=== PATIENT | female | born 1950 | race Caucasian/White ===

== ENCOUNTER → 2021-08-10 10:20 | Outpatient (CLI) | payer MEDICARE, OTHER, SELFPAY ==
--- NOTE | 2021-08-10 10:44 | XR_ITS ---
PROCEDURE: XR CHEST PORTABLE CLINICAL HISTORY: COVID OUTPATIENT COMPARISON: No exams were available for comparison FINDINGS: The cardiomediastinal silhouette and pulmonary vascularity are within normal limits. The lungs are clear without infiltrates, suspicious nodules, or pleural effusions. No acute bony abnormalities. IMPRESSION: No acute findings. Dictated by: Octaviano Robles MD 08/10/2021 11:03 Octaviano Robles MD in [place] 08/10/2021 11:03
== END ==
PROVIDERS: PCP Family Medicine; Visit Provider Nurse Practitioner
DX: Z20.822 Contact with and (suspected) exposure to COVID-19 (principal); U07.1 COVID-19
CPT/HCPCS: 71045; C9803; U0003; U0005

== ENCOUNTER 2022-06-02 10:27 | Emergency (ER) | payer OTHER, SELFPAY ==
[2022-06-02 10:45] VITALS: BP 167/73; PULSE 83; RESP 19; TEMP 36.8; O2SAT 98; BMI 27.9
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
[2022-06-02 13:15] VITALS: BP 167/73; PULSE 83; RESP 19; TEMP 36.8; O2SAT 98
== END 2022-06-02 13:20 | disposition home or self-care (01) ==
PROVIDERS: Emergency Provider Nurse Practitioner; PCP Nurse Practitioner
DX: M54.2 Cervicalgia (principal); M25.532 Pain in left wrist; M25.512 Pain in left shoulder; T14.8XXA Other injury of unspecified body region, initial encounter; V44.5XXA Car driver injured in collision with heavy transport vehicle or bus in traffic accident, initial encounter
CPT/HCPCS: 72040; 73110; 99213; G0463

== ENCOUNTER 2023-10-09 09:14 | Emergency (ER) | payer MEDICARE, OTHER, SELFPAY ==
[2023-10-09 09:15] VITALS: BP 134/96; PULSE 84; RESP 22; TEMP 36.7; O2SAT 98; BMI 30.9
--- NOTE | 2023-10-09 09:21 | PC.NURSE ---
pt to restroom without complications
[2023-10-09 09:32] VITALS: BMI 30.9
--- NOTE | 2023-10-09 09:32 | CT_ITS ---
FINAL REPORT TECHNIQUE: After the administration of oral and intravenous contrast, axial images were obtained through the abdomen and pelvis by computed tomography. The study was performed with techniques to keep radiation dose as low as reasonably achievable, (ALARA). Individual dose reduction techniques using automated exposure control or adjustment of mA and/or kV according to the patient's size were employed. CLINICAL HISTORY: R flank pain and dysuria COMPARISON: None FINDINGS: Abdomen: The lung bases are clear. The liver parenchyma is homogeneous. The gallbladder is present. The spleen, pancreas, and adrenals appear unremarkable. The aorta is normal in caliber. There is no free fluid or adenopathy. There is moderate right hydronephrosis and hydroureter which extends to the level of an obstructing stone at the ureterovesicular junction, with a stone measuring 7 mm in diameter. The left kidney is unremarkable in appearance. Pelvis: The appendix is not identified. The urinary bladder is unremarkable. There is no free fluid or adenopathy. IMPRESSION: Moderate right hydronephrosis and hydroureter, which extends to the level of an obstructing stone at the UVJ measuring 7 mm in diameter. Reviewed, Interpreted and Dictated by Shan Schwarz MD Transcribed by Amena Wills Authenticated and [facility]
--- NOTE | 2023-10-09 09:34 | HMH.EDGENADL ---
Discharge Plan Disposition Patient Disposition: Home, Self-Care Condition: Fair Prescriptions Prescriptions: New tamsulosin 0.4 mg capsule 0.4 mg PO DAILY Qty: 10 0RF ondansetron 4 mg tablet,disintegrating 4 mg PO Q8H 5 Days Qty: 15 0RF hydrocodone-acetaminophen 5-325 mg tablet 1 tab PO Q8H PRN (Reason: pain (scale score 7-10)) Qty: 9 0RF No Action meloxicam 15 mg tablet See Rx Instructions .ROUTE .COMPLEX Qty: 30 1RF Dose Instruction: TAKE 1 TABLET BY MOUTH EVERY DAY FOR 30 DAYS Rx Instructions: TAKE 1 TABLET BY MOUTH EVERY DAY FOR 30 DAYS cetirizine-pseudoephedrine 1 EACH tablet extended release 12 hr 1 each PO DAILY methocarbamol 500 MG tablet 500 mg PO BID PRN (Reason: Muscle Spasm) Qty: 10 0RF Referrals Follow up/Referrals: Arnulfo Mc MD [Primary Care Provider] - See instructions Howard Paula MD [Staff Physician] - See instructions Activity Restrictions/Add. Instructions Additional Instructions/Restrictions: You were evaluated in the emergency department today for right flank pain. You have a kidney stone that looks like it is very close to passing if it has not already passed. Strain your urine and drink plenty of fluids. Take the prescribed tamsulosin as directed to relax your urinary tract and help the stone pass. Take the prescribed Zofran if needed for nausea and vomiting. Take the prescribed hydrocodone acetaminophen if you have severe pain not controlled by ibuprofen. You have been referred to urology for outpatient follow-up. Make an appointment with your primary care physician for reevaluation as soon as possible. Return to the emergency department with any new or worsening symptoms. Clinical Impressions Clinical Impression: Ureterolithiasis Hydronephrosis Qualifiers: Hydronephrosis type: unspecified Qualified Code(s): N13.30 - Unspecified hydronephrosis Instructions Patient Instructions: DI for Kidney Stones, DI for Hydronephrosis-Adult Discharge ED Provider: Kera Sánchez Adult HPI General Chief complaint: PAIN Stated complaint: back pain, nausea, pain while urinating Time Seen by Provider: 10/09/23 09:17 History of Present Illness HPI narrative: This 73-year-old female presents to the emergency department with concerns of right flank pain and painful urination. Patient states she has a history of kidney stones. She believes she has had a UTI for the last 2 to 3 days with painful urination. She has been taking Azo without relief. This morning she had acute onset of right flank pain. She states it feels like kidney stone. She is having nausea and vomiting. She says the pain radiates from her right flank around into her right groin. Patient takes Zyrtec daily but no other daily medications. Related Data Home Medications Medication Instructions Recorded Confirmed cetirizine 5 mg-pseudoephedrine ER 1 each PO DAILY Allergy symptoms 06/02/22 06/02/22 120 mg tablet,extended release,12hr Previous Rx's Medication Instructions Recorded methocarbamol 500 mg tablet 500 mg PO BID PRN Muscle Spasm #10 06/02/22 tabs meloxicam 15 mg tablet See Rx Instructions .Route 02/26/23 .COMPLEX #30 tabs hydrocodone 5 mg-acetaminophen 325 1 tab PO Q8H PRN pain (scale score 10/09/23 mg tablet 7-10) #9 tabs ondansetron 4 mg disintegrating 4 mg PO Q8H 5 days #15 tabs 10/09/23 tablet tamsulosin 0.4 mg capsule 0.4 mg PO DAILY #10 caps 10/09/23 Allergies Allergy/AdvReac Type Severity Reaction Status Date / Time codeine AdvReac Intermediate Abdominal Verified 10/09/23 10:48 Pain PFSH PFSH Disclaimer: The information contained in this section may have been updated after the patient was seen, as this information can be updated by other users. Social History Smoking Status: Never smoker alcohol intake: never substance use type: denies use current occupational status: other Travel in the last 8 weeks: None household members: family housing: house ROS Obtained: Yes All systems reviewed & no additional complaints except as documented Constitutional Constitutional: Denies chills, Denies fever(s), Denies headache(s) and Denies weakness Eyes Eyes: Denies change in vision ENT Ears, Nose, Mouth, and Throat: Denies dizziness, Denies headache(s), Denies nasal congestion and Denies sore throat Cardiovascular Cardiovascular: Denies chest pain, Denies dyspnea and Denies leg edema Respiratory Respiratory: Denies cough and Denies dyspnea Gastrointestinal Gastrointestingal: Reports abdominal pain, nausea and vomiting; Denies constipation or diarrhea Genitourinary Female Genitourinary: Reports dysuria and Reports flank pain Musculoskeletal Musculoskeletal: Denies arthralgias, Denies myalgias, Denies numbness and Denies tingling Integumentary/Breasts Skin/Breast: Denies change in pigmentation Neurologic Neurologic: Denies dizziness, Denies headache(s), Denies numbness, Denies tingling and Denies weakness Physical Exam General General appearance: alert Comment: In distress secondary to pain, nontoxic appearing Head Head exam: atraumatic and normocephalic Eye Eye exam: Present PERRL and EOMI ENT ENT exam: Present mucous membranes moist Neck Neck exam: Present normal inspection and full ROM Chest Chest inspection: Present symmetric chest wall rise Respiratory Respiratory exam: Present normal lung sounds bilaterally; Absent respiratory distress or stridor Cardiovascular Cardiovascular exam: Present regular rate and normal rhythm Abdominal Exam Abdominal exam: Present soft and tenderness (Right flank, suprapubic, positive right CVA tenderness); Absent distention, guarding or rebound Extremities Exam Extremities exam: Present full ROM Back Exam Back exam: Present CVA tenderness (R); Absent CVA tenderness (L) Neurological Exam Neurological exam: Present alert and oriented X3; Absent motor sensory deficit Psychiatric Psychiatric exam: Present normal affect and normal mood Skin Skin exam: Present warm and dry Medical Decision Making Ayaan Inquiry Pt receiving controlled substance: No Vital Signs: 10/09/23 09:15 10/09/23 10:33 10/09/23 11:00 Temperature 98.0 F 97.6 F Temperature Source Oral Oral Pulse Rate 82 96 H Pulse Rate [Right] 84 Respiratory Rate 22 20 Blood Pressure 178/90 H 168/80 H Blood Pressure [Right Arm] 134/96 H Blood Pressure Mean 119 109 Blood Pressure Mean [Right Arm] 108 Blood Pressure Source [Right Arm] Automatic Cuff 02 Sat by Pulse Oximetry 98 97 96 Oxygen Delivery Method Room Air Room Air 10/09/23 11:30 10/09/23 12:17 Temperature 97.8 F Temperature Source Pulse Rate 78 80 Pulse Rate [Right] Respiratory Rate 20 18 Blood Pressure 174/87 H 160/92 H Blood Pressure [Right Arm] Blood Pressure Mean 116 Blood Pressure Mean [Right Arm] Blood Pressure Source [Right Arm] 02 Sat by Pulse Oximetry 97 Oxygen Delivery Method Room Air Lab Data Lab Results 10/09/23 08:50: Urine Color [place], Urine Appearance Sl cloudy, Urine pH 5.0, Ur Specific [place] 1.025, Urine Protein 3+, Urine Glucose (UA) Trace, Urine Ketones Trace, Urine Blood 2+, Urine Nitrate Positive, Urine Bilirubin Negative, Urine Urobilinogen >=8.0, Ur Leukocyte Esterase Trace, Urine RBC 5-10, Urine WBC Occasional, Ur Squamous Epith Cells 5-10, Urine Bacteria Trace 10/09/23 09:30: WBC 5.8, RBC 3.71 L, Hgb 13.9, Hct 35.4 L, MCV 95.2, MCH 37.4 H, MCHC 39.3 H, RDW 15.6, Plt Count 287, MPV 9.3, Neut % (Auto) 50.8, Lymph % (Auto) 40.4, [place] % (Auto) 5.9, Eos % (Auto) 2.1, Baso % (Auto) 0.7, Neut # (Auto) 3.0, Lymph # (Auto) 2.4, [place] # (Auto) 0.3, Eos # (Auto) 0.1, Baso # (Auto) 0.0, Sodium 140, Potassium 4.1, Chloride 107, Carbon Dioxide 27, Anion Gap 10.1, BUN 19 H, Creatinine 0.90, Estimated Creat Clear 65, Estimated GFR 61, Est GFR ( Amer) 74, Glucose 104 H, Calcium 9.4, Total Bilirubin 0.6, AST 37 H, ALT 28, Alkaline Phosphatase 65, Total Protein 7.7, Albumin 4.7, Globulin 3.0, Albumin/Globulin Ratio 1.6 10/09/23 09:30 10/09/23 09:30 Orders (Tests/Meds): ED MEDICATIONS Discontinued Medications Generic Name Dose Route Start Last Admin Trade Name Freq PRN Reason Stop Dose Admin Lactated Ringer's 500 mls @ 999 mls/hr 10/09/23 09:32 10/09/23 09:43 Lactated Ringer's 1000 Ml Bag IV 10/09/23 10:02 999 mls/hr .Q31M ONE Administration Iopamidol 75 ml 10/09/23 10:15 10/09/23 10:16 Iopamidol-370 (76%);100ml Bottle IV 10/09/23 10:16 75 ml ONCE ONE Administration Ketorolac Tromethamine 15 mg 10/09/23 09:44 10/09/23 09:52 Ketorolac 30mg/Ml Vial IV 10/09/23 09:45 15 mg ONCE ONE Administration Morphine Sulfate 4 mg 10/09/23 09:32 10/09/23 09:43 Morphine 4mg/Ml Syringe IV 10/09/23 09:33 4 mg ONCE ONE Administration Ondansetron HCl 4 mg 10/09/23 09:32 10/09/23 09:43 Ondansetron 4mg/2ml Vial IV 10/09/23 09:33 4 mg ONCE ONE Administration Sodium Chloride 10 ml 10/09/23 10:15 10/09/23 10:15 Sodium Chloride 0.9% 10ml Syr (Rad Only) IV 10/09/23 10:16 10 ml ONCE ONE Administration ORDERS Category Date Time Status CT abdomen pelvis w con Stat Cat Scan 10/09/23 09:32 Completed CBC w/Auto Diff [Complete Blood Count Auto Diff] Stat Lab 10/09/23 09:30 Completed CMP [Comprehensive Metabolic Panel] Stat Lab 10/09/23 09:30 Completed UA [Urinalysis and Microscopic] Stat Lab 10/09/23 08:50 Completed Medical Decision Narrative: In summary, this 73year old female presents to the emergency department today with right-sided flank pain, dysuria. On initial evaluation patient is hemodynamically stable but obviously in acute distress secondary to pain, she is also having nausea and vomiting, physical exam notable for right CVA tenderness as well as right flank tenderness radiating to the suprapubic area. Differential diagnosis includes but is not limited to urinary tract infection, pyelonephritis, nephrolithiasis, ureterolithiasis, hydronephrosis, perinephric abscess, appendicitis. Based on these concerns, I ordered appropriate labs including urine studies, CT imaging, and symptomatic control with IV medications. Patient received IV Zofran, IV morphine, IV fluids for treatment. Labs personally reviewed demonstrate CBC without leukocytosis or anemia, CMP with mild prerenal changes, patient is already receiving IV fluids. No significant electrolyte abnormalities, UA negative for signs of infection. CT imaging personally interpreted demonstrates ureterolithiasis with stone at the UVJ causing hydronephrosis. See radiology read for final interpretation. On reassessment patient feels improved and states her symptoms are significantly better. She feels comfortable being discharged. I have given her referral to urology as well as prescription for tamsulosin, Zofran, and short course of hydrocodone for severe pain. She is comfortable with this plan and appropriate for discharge. She was also provided a urine strainer. Patient was given instructions on symptomatic management, follow up instructions, and return precautions for the emergency department. Patient indicated understanding and was discharged in stable condition. Critical Care Critical Care Time Critical Care Time: No
[2023-10-09 09:35] LABS: Microscopic, Urine URINE MICROSCOPIC (MICROSCOPIC)
[2023-10-09 09:39] LABS: Appearance,Urine SL CLOUDY (Clear); Bilirubin,Urine Negative (Negative); Blood, Urine 2+ (Negative); Color,Urine ORANGE (Yellow); Glucose,Urine (UA) TRACE (Negative); Ketones,Urine TRACE (Negative); Leukocyte Esterase,Urine TRACE (Negative); Nitrate,Urine POSITIVE (Negative); Protein,Urine 3+ (Negative); Specific Gravity, Urine 1.025 (1.005-1.030); Urobilinogen,Urine >=8.0 EU/dl (0.2)
[2023-10-09] MEDS: MORPHINE 4MG/ML SYRINGE 4 MG IV (09:43)
[2023-10-09] MEDS: LACTATED RINGERS 1000ML 500 ML 999 ML IV (09:43)
[2023-10-09] MEDS: ONDANSETRON 4MG/2ML VIAL 4 MG IV (09:43)
[2023-10-09 09:44] LABS: Basophils % 0.7 % (0.1-2.0); Eosinophils # 0.1 K/mm3 (0.0-0.4); Eosinophils % 2.1 % (0.1-12.0); Hematocrit 35.4 % (37.0-47.0); Hemoglobin 13.9 g/dL (12.2-16.2); Lymphocytes # 2.4 K/mm3 (0.7-4.5); Lymphocytes % 40.4 % (10-50); Mean Corpuscular HGB Conc 39.3 g/dL (31.8-35.4); Mean Corpuscular Hemoglobin 37.4 pg (27.0-31.2); Mean Corpuscular Volume 95.2 fl (81-99); Mean Platelet Volume 9.3 fl (7.4-10.4); Monocytes # 0.3 K/mm3 (0.1-1.0); Monocytes % 5.9 % (1.7-9.3); Neutrophils % 50.8 % (37.0-80.0); Platelet Count 287 K/mm3 (142-424); Red Blood Count 3.71 M/mm3 (4.20-5.40); Red Cell Distribution Width 15.6 % (11.5-17.5); White Blood Count 5.8 K/mm3 (4.8-10.8)
[2023-10-09 09:45] LABS: Chloride 107 mmol/L (98-107); Potassium 4.1 mmoL/L (3.5-5.1); Sodium 140 mmol/L (136-145)
[2023-10-09 09:48] LABS: Alanine Aminotransferase 28 U/L (12-78); Albumin Level 4.7 g/dl (3.5-5.0); Albumin/Globulin Ratio 1.6 (1.1-1.8); Alkaline Phosphatase 65 U/L (38-126); Anion Gap 10.1 mEq/L (5-15); Aspartate Amino Transferase 37 U/L (14-36); Bilirubin,Total 0.6 mg/dl (0.2-1.3); Blood Urea Nitrogen 19 mg/dl (7-17); Calcium 9.4 mg/dl (8.4-10.2); Carbon Dioxide 27 mmol/L (22.0-30.0); Creatinine Clearance Estimated 65 mL/min (50-200); Estimated Glomerular Filt Rate 61 ml/min (>60); GFR (African American) 74 ML/MIN (>60); Glucose 104 mg/dl (74-100); Total Protein,Serum 7.7 g/dl (6.3-8.2)
[2023-10-09] MEDS: KETOROLAC 30MG/ML VIAL 15 MG IV (09:52)
--- NOTE | 2023-10-09 09:57 | PC.NURSE ---
pt to CT scan
[2023-10-09 10:09] LABS: Bacteria,Urine Trace /lpf; WBC,Urine Occasional #/hpf (0-3)
[2023-10-09] MEDS: SODIUM CHLORIDE 0.9% 10ML SYR (RAD ONLY) 10 ML IV (10:15)
[2023-10-09] MEDS: IOPAMIDOL-370 (76%);100ML BOTTLE 75 ML IV (10:16)
[2023-10-09 10:33] VITALS: BP 178/90; PULSE 82; TEMP 36.4; O2SAT 97
--- NOTE | 2023-10-09 10:51 | PC.NURSE ---
rounded on pt, she is much more comfortable. Tolerating ice chips. Updated that we are awaiting CT scan results.
[2023-10-09 11:00] VITALS: BP 168/80; PULSE 96; RESP 20; O2SAT 96
[2023-10-09 11:30] VITALS: BP 174/87; PULSE 78; RESP 20; O2SAT 97
[2023-10-09 12:17] VITALS: BP 160/92; PULSE 80; RESP 18; TEMP 36.6; O2SAT 98
== END 2023-10-09 12:20 | disposition home or self-care (01) ==
PROVIDERS: Emergency Provider Emergency Medicine; PCP Family Medicine
DX: N13.2 Hydronephrosis with renal and ureteral calculous obstruction (principal); R10.2 Pelvic and perineal pain; R11.2 Nausea with vomiting, unspecified
CPT/HCPCS: 74177; 80053; 81001; 85025; 96361; 96374; 96375; 99285; J2405; Q9967

== ENCOUNTER 2024-01-10 07:44 | Outpatient (CLI) | payer MEDICARE, OTHER, SELFPAY ==
[2024-01-10 08:24] LABS: Basophils % 0.3 % (0.1-2.0); Eosinophils # 0.1 K/mm3 (0.0-0.4); Eosinophils % 2.2 % (0.1-12.0); Hematocrit 35.7 % (37.0-47.0); Hemoglobin 13.3 g/dL (12.2-16.2); Lymphocytes # 1.7 K/mm3 (0.7-4.5); Mean Corpuscular HGB Conc 37.4 g/dL (31.8-35.4); Mean Corpuscular Hemoglobin 35.4 pg (27.0-31.2); Mean Corpuscular Volume 94.7 fl (81-99); Mean Platelet Volume 9.1 fl (7.4-10.4); Monocytes # 0.4 K/mm3 (0.1-1.0); Monocytes % 7.6 % (1.7-9.3); Neutrophils # 3.1 K/mm3 (1.8-7.8); Neutrophils % 57.8 % (37.0-80.0); Platelet Count 249 K/mm3 (142-424); Red Blood Count 3.77 M/mm3 (4.20-5.40); Red Cell Distribution Width 15.3 % (11.5-17.5); White Blood Count 5.4 K/mm3 (4.8-10.8)
[2024-01-10 09:05] LABS: Chloride 111 mmol/L (98-107)
[2024-01-10 09:06] LABS: Potassium 4.7 mmoL/L (3.5-5.1); Sodium 138 mmol/L (136-145)
[2024-01-10 09:07] LABS: Chloride 110 mmol/L (98-107); Potassium 4.6 mmoL/L (3.5-5.1); Sodium 140 mmol/L (136-145)
[2024-01-10 09:08] LABS: Alanine Aminotransferase 32 U/L (12-78); Alkaline Phosphatase 63 U/L (38-126); Anion Gap 4.7 mEq/L (5-15); Aspartate Amino Transferase 37 U/L (14-36); Bilirubin,Direct 0.4 mg/dl (0.0-0.4); Bilirubin,Indirect 0.3 mg/dL (0.0-0.9); Bilirubin,Total 0.7 mg/dl (0.2-1.3); Bilirubin,Unconjugated 0.3 mg/dL (0.0-1.1); Blood Urea Nitrogen 21 mg/dl (7-17); Carbon Dioxide 27 mmol/L (22.0-30.0); Estimated Glomerular Filt Rate 70 ml/min (>60); GFR (African American) 85 ML/MIN (>60)
[2024-01-10 09:09] LABS: Calcium 9.2 mg/dl (8.4-10.2); Chol/HDL Ratio 3.8 (1-3.5); Cholesterol 311 mg/dl (140-200); Glucose 97 mg/dl (74-100); HDL Cholesterol 81 mg/dl (40-60); Magnesium 2.2 mg/dl (1.6-2.3); Total Protein,Serum 6.8 g/dl (6.3-8.2); Triglycerides 63 mg/dl (30-150); VLDL Cholesterol 13 mg/dL (0-40)
[2024-01-10 09:09] LABS: Alanine Aminotransferase 32 U/L (12-78); Aspartate Amino Transferase 37 U/L (14-36); Blood Urea Nitrogen 21 mg/dl (7-17); Estimated Glomerular Filt Rate 82 ml/min (>60); GFR (African American) 99 ML/MIN (>60)
[2024-01-10 09:10] LABS: Albumin Level 4.1 g/dl (3.5-5.0); Albumin/Globulin Ratio 1.5 (1.1-1.8); Alkaline Phosphatase 63 U/L (38-126); Anion Gap 8.6 mEq/L (5-15); Bilirubin,Total 0.6 mg/dl (0.2-1.3); Calcium 9.1 mg/dl (8.4-10.2); Carbon Dioxide 26 mmol/L (22.0-30.0); Globulin 2.7 g/dL (1.3-3.2); Glucose 97 mg/dl (74-100); Total Protein,Serum 6.8 g/dl (6.3-8.2)
[2024-01-10 09:18] LABS: NT Pro Brain Natriuretic Pep. 42.6 pg/mL (0-125)
[2024-01-10 09:26] LABS: Direct LDL Cholesterol 149.95 mg/dL (100-129); Free T4 (Free Thyroxine) 0.86 ng/dl (0.78-2.19)
[2024-01-10 09:40] LABS: Thyroid Stimulating Hormone 1.97 uIU/mL (0.465-4.68)
== END 2024-01-10 23:59 ==
PROVIDERS: Physician Assistant; PCP Family Medicine; Visit Provider Physician Assistant
DX: R06.00 Dyspnea, unspecified (principal); R07.9 Chest pain, unspecified; Z82.49 Family history of ischemic heart disease and other diseases of the circulatory system
CPT/HCPCS: 36415; 80048; 80053; 80061; 80076; 83735; 83880; 84439; 84443; 85025

== ENCOUNTER 2024-01-29 06:30 | Outpatient (CLI) | payer MEDICARE, OTHER, SELFPAY ==
--- NOTE | 2024-01-29 06:34 | CT_ITS ---
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 A noncontrast coronary calcium scan was performed. A CT attenuation threshold of 130 Hounsfield units (HU) was used for the detection of calcium in contiguous voxels of 1 sq mm in area to be counted as individual lesions. Bolus tracking in the ascending aorta with a threshold of 180 HU was performed. Immediately afterwards, ECG synchronized cardiac CT was then performed from the cardiac base to apex using retrospective gating with ECG tube current modulation. A total of 85 mL of Isovue 370 mg/mL contrast medium was administered at 5 mL/sec followed by a saline flush using a biphasic injection protocol. A tube voltage of 120 KVp was used. The patient received the following medications prior to the cardiac CT. 0.8 mg of sublingual nitroglycerin The average heart rate at the time of acquisition was 57 bpm and regular. Image Reconstruction Transaxial images were reconstructed at 0.67 mm slide thickness. Data was reviewed interactively on an advanced workstation capable of 2 and 3-dimensional displays in all conventional reconstruction formats, including multiplanar reformations, maximum intensity projections, curved multiplanar reformations, and volume rendered reconstructions. When applicable, selected routine images describing the relevant coronary anatomy and pathology were saved and sent to PACS. Complications None Technical Quality Overall image quality was good. Coronary artery opacification was adequate. Total DLP (Dose-Length Product) is 1207.0 mGy-cm. The reported value represents the total of one or more individual components during the CT acquisition of this date and at this time, and as such, the same value may appear in more than one CT report depending on the interpreting/reporting physicians. COMPARISON None FINDINGS CT Coronary Calcium Scoring LMA (Left Main Artery) = 44 LAD (Left Anterior Descending) = 9 LCX (Left Coronary Circumflex) = 0 RCA (Right Coronary Artery) = 0 Total Calcium Score = 53 using the AJ-130 method. The observed calcium score of 53 is at 56th percentile for subjects of the same age, sex, and race/ethnicity. The interpretation of the calcium heart score is based on the following continuum*: 0 = no calcified plaque detected (risk of coronary artery disease is very low ??? less than 5%) 1-10 = calcium detected in extremely minimal levels (risk of coronary diseases is still low ??? less than 10%) 11-100 = mild levels of plaque detected with certainty (mild or minimal narrowing of heart arteries is likely) 101-400 = definite,at least moderate levels of plaque detected (relatively high risk of a heart attack within 3-5 years) >401-999 = extensive levels of plaque detected (high risk of heart attack, high levels of vascular disease are present, high likelihood of at least one significant coronary narrowing) *The calcium heart score quantifies the burden of coronary calcification/plaque in the coronary arteries. The calcium heart score is not able to evaluate the presence or burden of non-calcified (i.e. soft) plaque. There is no identifiable calcification in the aortic valve, mitral annulus or mitral valve, pericardium, or myocardium. Coronary CT Angiography The coronary arterial system is right dominant. Quantitative Stenosis Grading: Left Main (LM): The left main originates normally from the left sinus of Valsalva. The LM bifurcates into the left anterior descending artery and left circumflex artery. There is focal calcification in the distasl LM, but without evidence of luminal stenosis. Left Anterior Descending (LAD) and Diagonal Branches: The LAD gives off 2 diagonal branches. There is focal calcification in the proximal LAD, but without evidence of luminal stenosis. There is no evidence of LAD-myocardial bridge. Left Circumflex (LCX) and Obtuse Marginals (OM): The LCX gives off 1 Obtuse Marginal (OM) branch(es). The LCX and its branches are patent with no evidence of atherosclerosis. Right Coronary Artery (RCA): The RCA originates normally from the right sinus of Valsalva. The RCA gives off a posterior descending artery (PDA) and posterolateral (PL) branches. The RCA and its branches are patent with no evidence of atherosclerosis. Non-Coronary Cardiac Findings: Analysis of the left ventricular (LV) structure and function was performed after 3-D reconstruction of the LV from axial images, with user-corrected automatic contouring for assessment of LV volumes and user-defined reconstruction from oblique planes for measurement of 3-D cardiac structure and function. -The left ventricle systolic function is normal. -There is no left atrial appendage filling defect. Two right pulmonary veins and two left pulmonary veins drain normally into the left atrium. -No pericardial thickening or calcification. -Central and branch pulmonary arteries in the [id number] are unremarkable. -Thoracic aorta within the visualized thoracic aortic-branches in the [id number] is unremarkable. Extracardiac Structures No significant extra-cardiac findings. Note, however, that this study is focused on the cardiac findings. IMPRESSION -Presence of coronary calcification with an Agatston score = 53 using the AJ-130 method. -The observed calcium score of 53 is at 56th percentile for subjects of the same age, sex, and race/ethnicity. -No evidence of significant flow-limiting atherosclerosis of the coronary arteries. -CAD-RADS 1. Management recommendations per ACC/AHA guidelines*, as clinically appropriate. *Recommendations: CAD RADS 0: Reassurance. Consider non-atherosclerotic causes of chest pain. CAD RADS 1: Consider non-atherosclerotic causes of chest pain. Consider preventive therapy and risk factor modification. CAD RADS 2: Consider non-atherosclerotic causes of chest pain. Consider preventive therapy and risk factor modification, particularly for patients with nonobstructive plaque in multiple segments. CAD RADS 3: Consider further functional testing. Consider symptom-guided anti-ischemic and preventive pharmacotherapy as well as risk factor modification per published guideline statements. CAD RADS 4A: Consider further functional testing or invasive coronary angiography with revascularization per published guideline statements. Consider symptom-guided anti-ischemic and preventive pharmacotherapy as well as risk factor modification per published guideline statements. CAD RADS 4B: Invasive coronary angiography recommended with revascularization per published guideline statements. Consider symptom-guided anti-ischemic and preventive pharmacotherapy as well as risk factor modification per published guideline statements. CAD RADS 5: Consider invasive angiography and/or viability assessment with revascularization per published guideline statements. Consider symptom-guided anti-ischemic and preventive pharmacotherapy as well as risk factor modification per published guideline statements. CRITICAL RESULT None COMMUNICATION Per this written report The coronary and cardiac findings of this CCTA were reviewed, reported, and signed by Eric Lemons MD ([employer]) Conclusion Electronically signed by : Leyla Lemons MD 02/05/2024 13:01:10
[2024-01-29] MEDS: METOPROLOL TARTRATE 25MG TABLET *IVABRADINE+METOPROLOL REGIMINE 25 MG PO (07:15)
[2024-01-29 07:17] VITALS: BP 153/77; PULSE 62; RESP 18; TEMP 36.9; O2SAT 98; BMI 31.8
[2024-01-29 07:40] VITALS: BP 176/87; PULSE 63; RESP 18; O2SAT 96
[2024-01-29] MEDS: NITROGLYCERIN 0.4MG SL TABLET 0.800000000000000044 MG SL (07:40)
[2024-01-29 07:45] VITALS: BP 171/87; PULSE 65; RESP 18; O2SAT 98
--- NOTE | 2024-01-29 07:53 | CA_ITS ---
APPROVED REPORT EXAM: Comprehensive 2D, Doppler, and color-flow Echocardiogram Top Installer: Aisha Mc RVT Ht: 5 ft 3 in Wt: 187lbs BSA: 1.88 BP: 167/73 mmHg Indications: CP,CATHERINE 2D Dimensions LA Volume 36.00 mL LA Volume Index 19.15 mL/m2 (M/F) 16-34 M-Mode Dimensions RVDd 2.71 cm (0.9-2.6) LA Diam 3.73 cm (1.9-4.0) LVDd 3.72 cm (3.5-5.7) LVDs 2.32 cm (3.5-5.7) IVSd 1.39 cm (0.6-1.1) PWd 0.71 cm (0.6-1.1) EF (Teich) 68.60% FS 37.60% EDV (Teich) 58.90 mL TAPSE 2.62 (<1.7) ESV (Teich) 18.50 mL LV Diastology E Decel Time 150 (160-240 msec) E/A Ratio 1.3 Aortic Valve AoV Peak Melecio. 127.0 (50-130 cm/s) AO Peak GR. 6.40 mmHg AO Mean GR. 3.20 (<5 mmHg) AO VTI 30.4 (18-25 cm) Mitral Valve MV E Max Melecio. 98.0 (40-130 cm/s) MV A Velocity 73.0 (40-130 cm/s) E/A Ratio 1.36 MV PHT 44.0 ms Pulmonary Valve PV Peak Velocity 94.0 (50-150 cm/s) Tricuspid Valve TR P. Velocity 257.00 cm/s RAP Estimate 10.00 mmHg RVSP 36.50 mmHg Left Ventricle The left ventricle is normal size. The left ventricular systolic function is normal. The left ventricular ejection fraction is within the normal range. There is increased LV wall thickness. The left ventricular diastolic function is normal. LVEF is 55%. Right Ventricle The right ventricle is mildly dilated. The right ventricular systolic function is normal. Atria The left atrium size is normal. The right atrium size is normal. There is no Doppler evidence of interatrial shunt. Aortic Valve The aortic valve is mildly thickened. There is no aortic valvular stenosis. Mild aortic regurgitation. Mitral Valve The mitral valve leaflets are mildly thickened. No evidence of mitral valve stenosis. Trace mitral regurgitation. Tricuspid Valve The tricuspid valve leaflets are thin and pliable. Mild tricuspid regurgitation. RVSP is 20-25 mmHg. Pulmonic Valve The pulmonary valve is normal in structure. Trace pulmonic regurgitation. Great Vessels The aortic root is normal in size. The ascending aorta is normal in size. IVC is normal in size and collapses >50% with inspiration. Pericardium There is no pericardial effusion. Other Information Study Quality: Fair Conclusion Normal biventricular systolic function. Mild RV dilation. Mild AI. Mild TR. Electronically signed by : Leyla Lemons MD 02/01/2024 20:43:16
[2024-01-29 07:55] VITALS: BP 116/67; PULSE 62; RESP 18; O2SAT 98
[2024-01-29 08:00] VITALS: BP 164/54; PULSE 60; RESP 18; O2SAT 95
[2024-01-29] MEDS: IOPAMIDOL-370 (76%);100ML BOTTLE 85 ML IV (08:07)
[2024-01-29] MEDS: 0.9 % SODIUM CHLORIDE 50 ML VIAL IV (08:08)
[2024-01-29] MEDS: SODIUM CHLORIDE 0.9% 10ML SYR (RAD ONLY) 10 ML IV (08:08)
== END 2024-01-29 23:59 | disposition home or self-care (01) ==
PROVIDERS: PCP Physician Assistant; Visit Provider Physician Assistant
DX: R06.00 Dyspnea, unspecified (principal); R07.9 Chest pain, unspecified; R94.31 Abnormal electrocardiogram [ECG] [EKG]
CPT/HCPCS: 75571; 75574; 93306; Q9967

== ENCOUNTER 2024-08-12 09:08 | Outpatient (CLI) | payer MEDICARE, OTHER, SELFPAY ==
[2024-08-12 09:42] LABS: Basophils % 0.4 % (0.1-2.0); Eosinophils # 0.2 K/mm3 (0.0-0.4); Eosinophils % 2.9 % (0.1-12.0); Hematocrit 33.4 % (37.0-47.0); Hemoglobin 13.1 g/dL (12.2-16.2); Lymphocytes # 1.4 K/mm3 (0.7-4.5); Lymphocytes % 27.6 % (10-50); Mean Corpuscular HGB Conc 39.2 g/dL (31.8-35.4); Mean Corpuscular Hemoglobin 39.7 pg (27.0-31.2); Mean Corpuscular Volume 101.2 fl (81-99); Mean Platelet Volume 8.9 fl (7.4-10.4); Monocytes # 0.4 K/mm3 (0.1-1.0); Monocytes % 8.3 % (1.7-9.3); Neutrophils # 3.1 K/mm3 (1.8-7.8); Neutrophils % 60.7 % (37.0-80.0); Platelet Count 218 K/mm3 (142-424); Red Cell Distribution Width 18.1 % (11.5-17.5); White Blood Count 5.2 K/mm3 (4.8-10.8)
[2024-08-12 10:13] LABS: Albumin Level 4.5 g/dl (3.5-5.0); Chloride 111 mmol/L (98-107); Sodium 141 mmol/L (136-145)
[2024-08-12 10:14] LABS: Potassium 4.3 mmoL/L (3.5-5.1)
[2024-08-12 10:16] LABS: Alanine Aminotransferase 28 U/L (12-78); Anion Gap 9.3 mEq/L (5-15); Aspartate Amino Transferase 41 U/L (14-36); Bilirubin,Unconjugated 0.4 mg/dL (0.0-1.1); Blood Urea Nitrogen 23 mg/dl (7-17); Carbon Dioxide 25 mmol/L (22.0-30.0); Cholesterol 174 mg/dl (140-200); Estimated Glomerular Filt Rate 61 ml/min (>60); GFR (African American) 74 ML/MIN (>60); Triglycerides 76 mg/dl (30-150); VLDL Cholesterol 15 mg/dL (0-40)
[2024-08-12 10:17] LABS: Alkaline Phosphatase 61 U/L (38-126); Bilirubin,Direct 0.4 mg/dl (0.0-0.4); Bilirubin,Indirect 0.3 mg/dL (0.0-0.9); Bilirubin,Total 0.7 mg/dl (0.2-1.3); Chol/HDL Ratio 1.9 (1-3.5); Glucose 93 mg/dl (74-100); HDL Cholesterol 90 mg/dl (40-60)
[2024-08-12 10:35] LABS: Free T4 (Free Thyroxine) 1.04 ng/dl (0.78-2.19)
[2024-08-12 10:48] LABS: Thyroid Stimulating Hormone 1.47 uIU/mL (0.465-4.68)
== END 2024-08-12 23:59 | disposition home or self-care (01) ==
LOC: LAB 09:12
PROVIDERS: PCP Family Medicine; Visit Provider Physician Assistant
DX: I25.10 Atherosclerotic heart disease of native coronary artery without angina pectoris (principal); I10 Essential (primary) hypertension; E78.2 Mixed hyperlipidemia
CPT/HCPCS: 36415; 80048; 80061; 80076; 84439; 84443; 85025